=== PATIENT | male | born 1960 | race American Indian/Alaskan Native ===

== ENCOUNTER 2018-04-22 06:32 | Emergency (ER) | payer OTHER ==
[2018-04-22] MEDS ORDERED: ASPIRIN PO ONE (06:52)
[2018-04-22 07:23] LABS: Hematocrit 46.8 % (35.5-45.6); Hemoglobin 15.3 gm/dl (11.8-15.2); Mean Corpuscular HGB Conc 33 % (32-34); Mean Corpuscular Volume 91 fl (84-94); Platelet Count 236 K/mm3 (140-440); Red Blood Count 5.13 M/mm3 (3.65-5.03); Red Cell Distribution Width 13.5 % (13.2-15.2)
[2018-04-22 07:38] LABS: BUN/Creatinine Ratio 18; Blood Urea Nitrogen 14 mg/dL (9-20); Calcium 9.4 mg/dL (8.4-10.2); Hemolysis Index 31
--- NOTE | 2018-04-22 08:29 | XRay Report ---
ROUTINE CHEST, TWO VIEWS: HISTORY: chest pain. The trachea, heart, mediastinal contour, lung tyler and bony thorax are unremarkable. IMPRESSION: Unremarkable chest x-ray.
[2018-04-22 08:42] LABS: Basophils % (Manual) 0 % (0.0-1.8); Eosinophils % (Manual) 0 % (0.0-4.3); Total Cells Counted 100
[2018-04-22 08:44] LABS: Anisocytosis 1+
[2018-04-22 08:45] LABS: Platelet Estimate Consistent w Auto; Poikilocytosis 1+
--- NOTE | 2018-04-22 09:54 | Emergency Department Report ---
ED Chest Pain HPI - General Chief Complaint: Chest Pain Stated Complaint: CHEST/DIZZY Time Seen by Provider: 04/22/18 09:35 Source: patient Mode of arrival: Ambulatory Limitations: No Limitations - History of Present Illness Initial Comments: Patient is 58 years old male with history of hypertension, diabetes and arthritis. Patient presented to the ER complaining of diffuse chest pain that started approximately 6 hours ago while he was working patient stated that he forget to take his blood pressure medicine. Patient stated that symptoms started with burning sensation in his chest and some dizziness but as soon as he took his blood pressure medicine and his symptoms improved significantly. Patient has stated that he does not have any chest pain at this moment. MD Complaint: chest pain -: This morning Onset: during exertion Pain Location: other (diffuse) Quality: other (burning) Consistency: now resolved - Related Data Home Medications Medication Instructions Recorded Confirmed Last Taken Levothyroxine [Synthroid] 150 mcg PO QAM 01/18/13 08/03/14 08/02/14 Lisinopril [Zestril TAB] 40 mg PO QDAY 01/18/13 08/03/14 08/02/14 amLODIPine [Norvasc] 5 mg PO DAILY 01/18/13 08/03/14 08/02/14 Ezetimibe [Zetia] 10 mg PO DAILY 07/18/13 08/03/14 08/02/14 Gabapentin 300 mg PO BID 07/18/13 08/03/14 08/02/14 Metformin HCl 1,000 mg PO QDAY 07/18/13 08/03/14 08/02/14 Previous Rx's Medication Instructions Recorded Last Taken Type Spironolactone [Aldactone] 25 mg PO QDAY #30 tablet 01/12/14 08/02/14 Rx Ciprofloxacin HCl [Ciprofloxacin 500 mg PO Q12H #14 tab 10/20/14 Unknown Rx TAB] oxyCODONE /ACETAMINOPHEN [Percocet 1 tab PO Q6HR PRN #14 tablet 01/09/16 Unknown Rx 5/325] Allergies Allergy/AdvReac Type Severity Reaction Status Date / Time No Known Allergies Allergy Verified 07/18/13 07:38 Heart Score - HEART Score History: Slightly suspicious EKG: Non-specific Age: 45-65 Risk factors: 1-2 risk factors Troponin: < normal limit HEART Score: 3 - Critical Actions Critical Actions: 0-3 pts:0.9-1.7%risk of adverse cardiac event.Candidate for discharge ED Review of Systems ROS: Stated complaint: CHEST/DIZZY Other details as noted in HPI Comment: All other systems reviewed and negative Constitutional: denies: chills, fever Respiratory: denies: cough, orthopnea, shortness of breath, SOB with exertion, SOB at rest, wheezing Cardiovascular: chest pain. denies: palpitations Gastrointestinal: denies: abdominal pain, nausea, vomiting, diarrhea, constipation, hematemesis, melena, hematochezia Musculoskeletal: denies: back pain Neurological: denies: headache, weakness, numbness, paresthesias, confusion, abnormal gait ED Past Medical Hx - Past Medical History Hx Hypertension: Yes Hx Heart Attack/AMI: No Hx Congestive Heart Failure: No Hx Diabetes: Yes Hx Deep Vein Thrombosis: No Hx Liver Disease: Yes Hx Renal Disease: No Hx Arthritis: Yes Hx Kidney Stones: No Hx Asthma: No Hx COPD: No Hx HIV: No Additional medical history: Carcinoid tumor - Surgical History Hx Coronary Stent: No Additional Surgical History: hip replacement, hand surgery - Social History Smoking Status: Never Smoker Substance Use Type: None - Medications Home Medications: Home Medications Medication Instructions Recorded Confirmed Last Taken Type Levothyroxine [Synthroid] 150 mcg PO QAM 01/18/13 08/03/14 08/02/14 History Lisinopril [Zestril TAB] 40 mg PO QDAY 01/18/13 08/03/14 08/02/14 History amLODIPine [Norvasc] 5 mg PO DAILY 01/18/13 08/03/14 08/02/14 History Ezetimibe [Zetia] 10 mg PO DAILY 07/18/13 08/03/14 08/02/14 History Gabapentin 300 mg PO BID 07/18/13 08/03/14 08/02/14 History Metformin HCl 1,000 mg PO QDAY 07/18/13 08/03/14 08/02/14 History Spironolactone [Aldactone] 25 mg PO QDAY #30 tablet 01/12/14 08/03/14 08/02/14 Rx Ciprofloxacin HCl [Ciprofloxacin 500 mg PO Q12H #14 tab 10/20/14 Unknown Rx TAB] oxyCODONE /ACETAMINOPHEN [Percocet 1 tab PO Q6HR PRN #14 tablet 01/09/16 Unknown Rx 5/325] ED Physical Exam - General Limitations: No Limitations General appearance: alert, in no apparent distress - Head Head exam: Present: atraumatic, normocephalic, normal inspection - Eye Eye exam: Present: normal appearance - ENT ENT exam: Present: normal exam, normal orophraynx, mucous membranes moist, normal external ear exam - Neck Neck exam: Present: normal inspection, full ROM. Absent: tenderness, meningismus, lymphadenopathy, thyromegaly - Respiratory Respiratory exam: Present: normal lung sounds bilaterally. Absent: respiratory distress, wheezes, rales, rhonchi, stridor, chest wall tenderness, accessory muscle use, decreased breath sounds, prolonged expiratory - Cardiovascular Cardiovascular Exam: Present: regular rate, normal rhythm, normal heart sounds - GI/Abdominal GI/Abdominal exam: Present: soft, normal bowel sounds. Absent: distended, tenderness, guarding, rebound, rigid, diminished bowel sounds, organomegaly, mass, bruit, pulsatile mass, hernia - Extremities Exam Extremities exam: Present: normal inspection, full ROM, normal capillary refill. Absent: pedal edema, calf tenderness - Back Exam Back exam: Present: normal inspection, full ROM. Absent: tenderness, CVA tenderness (R), CVA tenderness (L), muscle spasm, paraspinal tenderness, vertebral tenderness - Neurological Exam Neurological exam: Present: alert, oriented X3, CN II-XII intact, normal gait, reflexes normal - Skin Skin exam: Present: warm, intact, normal color ED Course Vital Signs 04/22/18 06:44 Temperature 97.4 F L Pulse Rate 78 Respiratory 18 Rate Blood Pressure 156/87 O2 Sat by Pulse 99 Oximetry ED Medical Decision Making - Lab Data Result diagrams: 04/22/18 07:05 04/22/18 07:05 - EKG Data -: EKG Interpreted by N[facility] EKG shows normal: sinus rhythm Rate: normal - EKG Data Interpretation: no acute changes - Radiology Data Radiology results: report reviewed - Medical Decision Making Patient is 58 years old male with history of hypertension, diabetes and arthritis. Patient presented to the ER complaining of diffuse chest pain that started approximately 6 hours ago while he was working patient stated that he forget to take his blood pressure medicine. Patient stated that symptoms started with burning sensation in his chest and some dizziness but as soon as he took his blood pressure medicine and his symptoms improved significantly. Patient has stated that he does not have any chest pain at this moment. Patient is chest pain-free now. Patient pain is more than 8 hours. EKG did not show any ST elevation. 2 sets of troponin is negative. Chest x-ray is unremarkable. Patient has symptoms is most likely related to his acid reflex although cardiac origin need to be consider for outpatient workup including a stress test. I advised the patient to follow up with his primary care physician in the next 2-3 days and to return to the ER if his symptoms are not improved. Critical care attestation.: If time is entered above; I have spent that time in minutes in the direct care of this critically ill patient, excluding procedure time. ED Disposition Clinical Impression: Chest pain, GERD (gastroesophageal reflux disease) Disposition: - TO HOME OR SELFCARE Is pt being admited?: No Condition: Stable Instructions: Chest Pain (ED) Referrals: PRIMARY CARE, [Primary Care Provider] - 3-5 Days
[2018-04-22 11:31] VITALS: BP 140/88
== END 2018-04-22 11:29 | disposition home or self-care (01) ==
LOC: ED 06:32
DX: K21.9 Gastro-esophageal reflux disease without esophagitis (principal); R07.89 Other chest pain; I10 Essential (primary) hypertension; E11.9 Type 2 diabetes mellitus without complications; M19.90 Unspecified osteoarthritis, unspecified site; Z96.649 Presence of unspecified artificial hip joint; Z79.899 Other long term (current) drug therapy
CPT/HCPCS: 36415; 71046; 80048; 84484; 85007; 85025; 85379; 93005; 93010